=== PATIENT | male | born 1970 | race Caucasian/White ===

== ENCOUNTER 2022-02-22 18:56 | Emergency (ER) | payer MEDICAID ==
[~2022-02-22] VITALS: Ht 180.3 cm; Wt 136.5 kg
[2022-02-22 19:03] VITALS: BP 159/110
[2022-02-22 19:51] LABS: BASOPHILS # (AUTO) 0.1 K/uL (0.00-0.22); BASOPHILS % (AUTO) 0.3 % (0.0-2.0); EOSINOPHILS # (AUTO) 0.2 K/uL (0-0.4); EOSINOPHILS % (AUTO) 0.8 % (0.0-4.0); HEMATOCRIT 39.9 % (36-52); HEMOGLOBIN 13.7 g/dL (12.0-18.0); LYMPHOCYTES # (AUTO) 1.6 K/uL (2.0-11.5); LYMPHOCYTES % (AUTO) 5.6 % (20.5-51.1); MEAN CORPUSCULAR HEMOGLOBIN 29 pg (27-31); MEAN CORPUSCULAR HGB CONC 34 g/dL (33-37); MEAN CORPUSCULAR VOLUME 83.1 fL (80-94); MONOCYTES # (AUTO) 1.8 K/uL (0.8-1.0); MONOCYTES % (AUTO) 6.4 % (1.7-9.3); NEUTROPHILS # (AUTO) 24.9 K/uL (1.8-7.7); NEUTROPHILS % (AUTO) 86.9 % (42.2-75.2); PLATELET COUNT (AUTO) 384 K/uL (140-450); RED CELL DISTRIBUTION WIDTH 12.8 % (11.6-13.7)
--- NOTE | 2022-02-22 20:00 | NUR ---
All amaro in ED - 02/22/22 at 2038 by [id number] I WANTED TO GET THE IV ACCESS BUT PT IS REFUSING TO GET IT , I HAVE EXPLAINED THE PT THE PURPOSE OF THE IV ACCESS FOR AND I TRIED TO EXPLAINE THE CRITICAL VALUE THAT NEEDS TO BE ADDRESSED WELL. PT WANTED TO HAVE THE DR EXPLAINED.
--- NOTE | 2022-02-22 20:07 | NUR ---
PHLEB DRAWING LABS IN CHAIR
[2022-02-22 20:13] LABS: ALBUMIN 3.4 g/dL (3.4-5.0); ANION GAP 14.9 (8-16); CARBON DIOXIDE 27.2 mmol/L (21-32); CREATININE 1.4 mg/dL (0.6-1.3); POTASSIUM 4.1 mmol/L (3.5-5.1); TOTAL BILIRUBIN 0.3 mg/dL (0.0-1.0)
--- NOTE | 2022-02-22 20:15 | NUR ---
All amaro in ED - 02/22/22 at 203 by [id number] PT CALLED THE AND HE REFUSED THE WHOLE TREATMENT IN HERE. PT REQUESTED AMA FORM AND HE SIGNED.
[2022-02-22 20:22] LABS: WHITE BLOOD COUNT (AUTO) 28.7 K/uL (4.8-10.8)
--- NOTE | 2022-02-22 20:26 | NUR ---
PT TO 1
--- NOTE | 2022-02-22 21:00 | NUR ---
HAS TOLD THE NURSE PT WILL GOING AMA AFTER ALL THE MEDICATION ARE GIVEN IN THE ER
[2022-02-22] MEDS ORDERED: PIPERACILLIN/TAZOBACTAM 3.375 GM in DEXTROSE 5% 50 ML IV ONE (22:00)
[2022-02-22] MEDS ORDERED: VANCOMYCIN 1,000 MG in DEXTROSE 5% 250 ML IV ONE (22:00)
--- NOTE | 2022-02-22 22:00 | NUR ---
PT IS A,ERT AND ORIENTED X 4 COMPLAINING HOT AND SWELLING, RED ON LEFT LEG. ROOM AIR AND AMBULATORY
[2022-02-22] MEDS ORDERED: GEMF600T5 PO (22:10)
[2022-02-22] MEDS ORDERED: LISI40TA12 PO (22:10)
[2022-02-22] MEDS ORDERED: AMLO10TA87 PO (22:10)
[2022-02-22] MEDS ORDERED: HYDR12.51 PO ×2 (22:10→22:14)
[2022-02-22] MEDS ORDERED: PIPERACILLIN/TAZOBACTAM 3.375 GM VIAL IV ONE (22:22)
[2022-02-22] MEDS ORDERED: VANCOMYCIN 1,000 MG VIAL ONE (22:34)
[2022-02-22] MEDS ORDERED: CEPH-588 PO (22:42)
[2022-02-22] MEDS ORDERED: SULF-59 PO (22:42)
[2022-02-23 01:17] VITALS: BP 145/90
--- NOTE | 2022-02-23 01:21 | NUR ---
Patient does not wish to proceed with medical care recommended by dR GOMEZ. Patient given information related to possible complications, up to and including , which could occur as a result of leaving hospital at this time. Patient verbalizes understanding of risks involved leaving against medical advice. Patient has signed AMA form. PT LEFT WITH HIS BELONGING.
== END 2022-02-23 01:04 | disposition left against medical advice (07) ==
LOC: MED 18:56
DX: L03.116 Cellulitis of left lower limb (principal); D72.829 Elevated white blood cell count, unspecified; I10 Essential (primary) hypertension; E78.5 Hyperlipidemia, unspecified; Z79.899 Other long term (current) drug therapy; Z76.0 Encounter for issue of repeat prescription
CPT/HCPCS: 36415; 80053; 85025; 87040; 96365; 96366; 96367; 99284; J2543; J3370